=== PATIENT | female | born 1960 | race Caucasian/White ===

== ENCOUNTER → 2021-06-29 06:55 | Outpatient (CLI) | payer BC, SELFPAY ==
--- NOTE | ~2021-06-29 | MM_ITS ---
EXAMINATION: MM screening patricia BI w susan HISTORY: Screening TECHNIQUE: Craniocaudal and mediolateral oblique 3-D tomosynthesis images were obtained and synthetic 2-D images were generated. CAD analysis was submitted and interpreted. COMPARISON: No prior mammogram is available for comparison at this institution. BREAST PARENCHYMAL COMPOSITION: There are scattered areas of fibroglandular density. FINDINGS: There is no evidence of suspicious mass, calcification, or architectural distortion to sugg est malignancy in either breast. There has been no suspicious interval change. IMPRESSION: 1. No mammographic evidence of malignancy. 2. Recommend routine screening mammography in one year. BI-RADS Category 1: Negative Reviewed, dictated and finalized at location A. SH MACHINE TENDER
== END ==
DX: Z12.31 Encounter for screening mammogram for malignant neoplasm of breast (principal)
CPT/HCPCS: 77063; 77067

== ENCOUNTER → 2022-08-02 15:28 | Outpatient (CLI) | payer BC, SELFPAY ==
--- NOTE | ~2022-08-02 | MM_ITS ---
EXAMINATION: MM screening patricia BI w susan HISTORY: Screening TECHNIQUE: Craniocaudal and mediolateral oblique 3-D tomosynthesis images were obtained and synthetic 2-D images were generated. CAD analysis was submitted and interpreted. COMPARISON: 06/29/2021 BREAST PARENCHYMAL COMPOSITION: There are scattered areas of fibroglandular density. FINDINGS: There is no evidence of suspicious mass, calcification, or architectural distortion to sugg est malignancy in either breast. There has been no suspicious interval change. IMPRESSION: 1. No mammographic evidence of malignancy. 2. Recommend routine screening mammography in one year. BI-RADS Category 1: Negative Reviewed, dictated and finalized at location A.
== END ==
PROVIDERS: PCP Physician Assistant; Visit Provider Physician Assistant
DX: Z12.31 Encounter for screening mammogram for malignant neoplasm of breast (principal)
CPT/HCPCS: 77063; 77067

== ENCOUNTER 2023-01-15 16:00 | Emergency (ER) | payer BC, SELFPAY ==
[2023-01-15 16:14] VITALS: BP 90/75; PULSE 95; RESP 16; TEMP 37.7; O2SAT 97
--- NOTE | 2023-01-15 16:17 | ED.URI ---
HPI - URI/Sore Throat General Chief Complaint: Upper Respiratory Infection Stated Complaint: ear/throat pain, cough Time Seen by Provider: 01/15/23 16:17 Source: patient, RN notes reviewed and old records reviewed Mode of arrival: ambulatory Limitations: no limitations History of Present Illness HPI Narrative: 62-year-old female presents to the [facility] with complaints of ear pain throat pain and a cough since Saturday, 2 days ago. Concern for COVID Related Data Home Medications Medication Instructions Recorded Confirmed blood sugar diagnostic (Contour #10 ea 07/10/22 01/15/23 Next Test Strips) blood-glucose meter (Contour Next #1 ea 07/10/22 01/15/23 EZ Meter) lancets (Microlet Lancet) #100 ea 07/10/22 01/15/23 Allergies Allergy/AdvReac Type Severity Reaction Status Date / Time codeine Allergy Intermediate Hives Verified 08/20/22 13:02 Sulfa (Sulfonamide Allergy Intermediate Hives Verified 08/20/22 13:02 Antibiotics) asprin Allergy Intermediate Other Uncoded 08/20/22 13:02 Review of Systems Review of Systems: All systems reviewed & are unremarkable except as noted in HPI and below Constitutional: Constitutional: Reports no additional constitutional complaints Eyes: Eyes: Reports no additional eye complaints ENT: Reports system reviewed and no additional complaints, except as documented Cardiovascular: Cardiovascular: Reports no additional cardiovascular complaints, Denies chest pain and Denies dyspnea Respiratory: Respiratory: Reports as per HPI, Denies chest congestion, Reports cough and Denies dyspnea Gastrointestinal: Gastrointestinal: Reports no additional gastrointestinal complaints, Denies abdominal pain, Denies nausea and Denies vomiting Musculoskeletal: Musculoskeletal: Reports no additional musculoskeletal complaints Integumentary/Breasts: Skin/Breast: Reports system reviewed and no additional complaints, except as docu Neurologic: Reports system reviewed and no additional complaints, except as documented Psychiatric: Psychiatric: Reports no additional psychiatric complaints Allergic/Immunologic: Allergic/Immunologic: Reports no additional allergic/immunologic complaints PMFSH Past Medical History Medical History Diverticulosis Hemophilia B HTN (hypertension) Prediabetes Surgical History Surgical History H/O removal of cyst R ovary H/O wrist surgery ORIF left History of tubal ligation 1995 Hx laparoscopic cholecystectomy Hx of wisdom tooth extraction Family History Family History Mother Hypertension Sibling Breast cancer Social History Social History Smoking packs per day: 1 Smoking cigarettes per day: 20.0 Years smoked: 40 Smoking pack-years: 40.00 Smoking status: Former smoker Tobacco type: cigarettes Second hand tobacco smoke exposure: Yes Alcohol intake: current Drinks per week: 3 Substance use: never Substance use type: does not use Lack of Transportation: No Lack of Food: Never True Current Housing: I Have Housing Concerned About Future Housing: No Difficulty Paying Gas/Electric Bills: No Difficulty Paying for Meds: No Currently Unemployed: No Education: Master's Degree or Higher Difficulty w/ Childcare or Family Care: No Living arrangements: with family Occupation/Education: occupation Gender identity (if verbalized by the patient): Female Sexual Orientation (if Verbalized by the Patient): Straight or Heterosexual Spiritual care concerns: No Agree to blood products: No Comments At the time of my signature, I reviewed and agree with the nursing past medical, surgical, social, and family history. There is no relevant family history pertinent to the patient complaint. Exam Const:
== END 2023-01-15 16:43 | disposition home or self-care (01) ==
PROVIDERS: Emergency Provider Nurse Practitioner; PCP Physician Assistant
DX: U07.1 COVID-19 (principal); Z87.891 Personal history of nicotine dependence; I10 Essential (primary) hypertension; R73.03 Prediabetes
CPT/HCPCS: 87426; 99213; C9803; G0463

== ENCOUNTER 2023-08-14 08:06 | Outpatient (CLI) | payer BC, SELFPAY ==
--- NOTE | ~2023-08-14 | US_ITS ---
EXAMINATION: US arterial ankle brachial ind DATE: 08/14/2023 09:11 INDICATION: Claudication. TECHNIQUE: Segmental pressures and plethysmographic and Doppler waveforms of the brachial and lower e xtremity arteries were obtained. COMPARISON: None. FINDINGS: Right and left brachial artery pressures of 123 mm Hg and 130 mm Hg, respectively, are concordant (no rmal difference <= 30 mmHg). The right ankle-brachial index (IRVIN) is 1.18 (normal >= 0.9-1.0). The right great toe-brachial index (TBI) is 0.32 (normal >= 0.65). Arterial Doppler waveforms are biphasic at the ankle. The left IRVIN is 1.09. The left TBI is 0.39. Arterial Doppler waveforms are biphasic in dorsalis pedis and monophasic in posterior tibial artery. IMPRESSION: 1. Normal ABIs and decreased TBIs, consistent with arterial occlusive disease. Note that ABIs may be overestimated if arteries are calcified. Reviewed, dictated and finalized at location A.
== END 2023-08-14 08:07 | disposition home or self-care (01) ==
PROVIDERS: PCP Family Medicine; Visit Provider Physician Assistant
DX: I73.9 Peripheral vascular disease, unspecified (principal)
CPT/HCPCS: 93922

== ENCOUNTER 2023-08-22 12:15 | Outpatient (CLI) | payer BC, SELFPAY ==
--- NOTE | ~2023-08-22 | MM_ITS ---
EXAMINATION: MM screening patricia BI w susan HISTORY: Screening mammogram TECHNIQUE: Craniocaudal and mediolateral oblique 3-D tomosynthesis images were obtained and synthetic 2-D images were generated. CAD analysis was submitted and interpreted. COMPARISON: 08/02/2022, 06/29/2021 bilateral screening mammogram examinations BREAST PARENCHYMAL COMPOSITION: There are scattered areas of fibroglandular density. FINDINGS: There is no evidence of suspicious mass, calcification, or architectural distortion to sugg est malignancy in either breast. There has been no suspicious interval change. IMPRESSION: 1. No mammographic evidence of malignancy. 2. Recommend routine screening mammography in one year. BI-RADS Category 1: Negative Reviewed, dictated and finalized at location A.
== END 2023-08-22 12:16 ==
LOC: MICIMG 12:17
PROVIDERS: PCP Nurse Practitioner; Visit Provider Physician Assistant
DX: Z12.31 Encounter for screening mammogram for malignant neoplasm of breast (principal)
CPT/HCPCS: 77063; 77067

== ENCOUNTER 2024-08-24 12:20 | Outpatient (CLI) | payer BC, SELFPAY ==
--- NOTE | ~2024-08-24 | MM_ITS ---
EXAMINATION: MM screening patricia BI w susan HISTORY: Screening TECHNIQUE: Craniocaudal and mediolateral oblique 3-D tomosynthesis images were obtained and synthetic 2-D images were generated. CAD analysis was submitted and interpreted. COMPARISON: Comparison to multiple prior studies sequentially, with oldest reviewed study dated 06/29. BREAST PARENCHYMAL COMPOSITION: Not dense: There are scattered areas of fibroglandular density. FINDINGS: There is no evidence of suspicious mass, calcification, or architectural distortion to sugg est malignancy in either breast. There has been no suspicious interval change. IMPRESSION: 1. No mammographic evidence of malignancy. 2. Recommend routine screening mammography in one year. BI-RADS Category 1: Negative Reviewed, dictated and finalized at location B.
== END 2024-08-24 12:21 | disposition home or self-care (01) ==
LOC: MICIMG 12:21
PROVIDERS: PCP Nurse Practitioner; Visit Provider Nurse Practitioner
DX: Z12.31 Encounter for screening mammogram for malignant neoplasm of breast (principal)
CPT/HCPCS: 77063; 77067

== ENCOUNTER 2024-08-25 11:36 | Emergency (ER) | payer BC, SELFPAY ==
[2024-08-25 11:48] VITALS: BP 143/75; PULSE 71; RESP 16; TEMP 36.2; O2SAT 100
--- NOTE | 2024-08-25 11:56 | ED_ITS ---
HPI - Chest Pain General Chief Complaint: Chest Pain Stated Complaint: chest pain left side Time Seen by Provider: 08/25/24 12:14 Source: patient Mode of arrival: ambulatory Limitations: no limitations History of Present Illness HPI narrative: 63-year-old female presents with concern for left-sided chest pain. Reports around 11:00 a.m. this morning she had an episode of chest pain on the left side that felt like pressure, it lasted about 15 minutes and then stopped. She denies any current pain or shortness of breath. She reports she felt short of breath while she was having the pain that she related to the pain itself. She denies any history of similar pain. Denies any cardiac history. Denies nausea, back pain, arm pain MD complaint: chest pain Related Data Home Medications ?Medication ?Instructions ?Recorded ?Confirmed ?Last Taken ?Type blood sugar diagnostic (Contour #10 ea 07/10/22 05/23/24 Unknown History Next Test Strips) blood-glucose meter (Contour Next #1 ea 07/10/22 05/23/24 Unknown History EZ Meter) lancets (Microlet Lancet) #100 ea 07/10/22 05/23/24 Unknown History Allergies Allergy/AdvReac Type Severity Reaction Status Date / Time codeine Allergy Intermediate Hives Verified 08/25/24 11:40 Sulfa (Sulfonamide Allergy Intermediate Hives Verified 08/25/24 11:40 Antibiotics) asprin Allergy Intermediate Other Uncoded 08/25/24 11:40 Review of Systems Review of Systems: CONSTITUTIONAL: Denies malaise, chills, sweats, or fever. EYES: Denies visual changes CARDIOVASCULAR: Reports and single episode of left-sided chest pain earlier today. Denies palpitations or edema. RESPIRATORY: Denies cough. Reports an episode of dyspnea when she was having the chest pain. GASTROINTESTINAL: Denies abdominal pain, nausea, vomiting, SKIN: Denies rash or itching. MUSCULOSKELETAL: Denies back pain NEUROLOGIC: Denies numbness, weakness, or headache. All systems reviewed & are unremarkable except as noted in HPI and below PMFSH Past Medical History Medical History Prediabetes Diverticulosis HTN (hypertension) Hemophilia B Surgical History Surgical History H/O removal of cyst R ovary H/O wrist surgery ORIF left Hx of wisdom tooth extraction Hx laparoscopic cholecystectomy History of tubal ligation 1995 Family History Family History Mother Hypertension Sibling Breast cancer Social History Social History Smoking packs per day: 1 Smoking cigarettes per day: 20.0 Years smoked: 40 Smoking pack-years: 40.00 Smoking status: Former smoker Tobacco type: cigarettes Second hand tobacco smoke exposure: Yes Alcohol intake: current Drinks per week: 3 Substance use: never Substance use type: does not use Do You Feel Safe in your Home?: Yes Lack of Transportation: No Lack of Food: Never True Current Housing: I Have Housing Concerned About Future Housing: No Difficulty Paying Gas/Electric Bills: No Difficulty Paying for Meds: No Currently Unemployed: No Education: Master's Degree or Higher Difficulty w/ Childcare or Family Care: No Living arrangements: with family Occupation/Education: occupation Gender identity (if verbalized by the patient): Female Sexual Orientation (if Verbalized by the Patient): Straight or Heterosexual Spiritual care concerns: No Agree to blood products: No Comments At time of signature, agree with nursing past medical, surgical, social and family history. There is no relevant family history pertinent to the presenting complaint Exam Narrative: GENERAL: Well-appearing, well-nourished, and in no acute distress. HEAD: Normocephalic, atraumatic. EYES: PERRLA, sclera clear, and EOMI. No nystagmus. ENT: Nares clear. Mucous membranes moist. NECK: Supple. CHEST: No respiratory distress. Clear to auscultation. No bony deformities, no asymmetry. Speaks in full sentences. HEART: Regular rate and rhythm. No murmur heard. Normal peripheral pulses. EXTREMITIES: Normal range of motion. No edema. Normal strength and sensation. SKIN: Warm, pink, dry, no visible rash, cap refill less than 3 seconds. NEURO: Alert and oriented x3. PSYCH: Normal mood and affect Course Course Emergency Course: Patient is aware of, understands and agrees to be transferred to ER, patient refused EMS. Patient agrees to proceed to the emergency department now. Portions of this record may have been created with voice recognition software Level of Care: Express Care Visit Vital Signs Vital signs: Vital Signs Temperature 97.1 F L 08/25/24 11:48 Pulse Rate 71 08/25/24 11:48 Respiratory Rate 16 08/25/24 11:48 Blood Pressure 143/75 H 08/25/24 11:48 Pulse Oximetry 100 08/25/24 11:48 Oxygen Delivery Room Air 08/25/24 11:48 Temperature 97.1 F L 08/25/24 11:48 Pulse Rate 71 08/25/24 11:48 Respiratory Rate 16 08/25/24 11:48 Blood Pressure 143/75 H 08/25/24 11:48 Pulse Oximetry 100 08/25/24 11:48 Oxygen Delivery Room Air 08/25/24 11:48 Reviewed. Transfer Transfered to: [facility] Transportation: Other (provate vehicle) Transfer rationale: chest pain, abnormal ECG Accepting physician: Loly Transfer comments: Refused EMS MDM - Chest Pain MDM Narrative Medical decision making narrative: Patient is nontoxic appearing and in no acute distress Critical Care Time Critical Care Time Critical Care Time: No Discharge Plan Discharge Clinical Impression: Abnormal ECG Patient Disposition: Acute Care Hospital Condition: Stable Patient Language: Korean Prescriptions: No Action (DME) blood-glucose meter [Contour Next EZ Meter] Misc See Rx Instructions .ROUTE .MEDSUPPLY Qty: 1 Rx Instructions: As directed (DME) lancets [Microlet Lancet] Misc See Rx Instructions .ROUTE .MEDSUPPLY Qty: 100 Rx Instructions: As directed (DME) Contour Next Test Strips Strip See Rx Instructions .ROUTE .MEDSUPPLY Qty: 10 Rx Instructions: As directed omeprazole 20 mg capsule,delayed release(DR/EC) 20 mg PO DAILY Qty: 30 0RF Jardiance 25 mg tablet See Rx Instructions .ROUTE .COMPLEX Qty: 90 1RF Dose Instruction: TAKE 1 TABLET BY MOUTH DAILY Rx Instructions: TAKE 1 TABLET BY MOUTH DAILY losartan 100 mg tablet 100 mg PO DAILY Qty: 90 0RF Follow-up/Referrals: Lili,Stacey Duque CONTACT LENS TECHNICIAN [Primary Care Provider] - Time of Disposition: 12:28
--- NOTE | 2024-08-25 11:57 | ECG_ITS ---
Test Date: 2024-08-25 12:48:39 Measurements Intervals [place] Rate: 77 P: 45 SC: 155 QRS: -29 QRSD: 108 T: 26 QT: 357 QTc: 406 Interpretive Statements SINUS RHYTHM POSSIBLE LEFT ATRIAL ENLARGEMENT INCOMPLETE RIGHT BUNDLE BRANCH BLOCK POSSIBLE ANTERIOR MYOCARDIAL INFARCTION , PROBABLY OLD BASELINE ARTIFACT- I, III, AVL, V5 ABNORMAL ECG No previous ECG available for comparison Electronically Signed On 08-25-2024 12:57:38 CDT by Javed Latham D.O.
--- NOTE | 2024-08-25 12:14 | ECG_ITS ---
Test Date: 2024-08-25 12:14:25 Measurements Intervals [place] Rate: 74 P: 53 IN: 153 QRS: -22 QRSD: 98 T: 18 QT: 376 QTc: 404 AVG RR: 802 QTcB: 419 QTcF: 404 Interpretive Statements SINUS RHYTHM CONSIDER INFERIOR INFARCT, AGE INDETERMINATE BASELINE ARTIFACT- I, II, III, AVL ABNORMAL ECG Electronically Signed On 08-27-2024 13:48:46 CDT by Javed MCKEE
== END 2024-08-25 12:25 | disposition short-term general hospital (02) ==
PROVIDERS: Emergency Provider Nurse Practitioner; PCP Nurse Practitioner
DX: R94.31 Abnormal electrocardiogram [ECG] [EKG] (principal); Z87.891 Personal history of nicotine dependence; I10 Essential (primary) hypertension; R73.03 Prediabetes
CPT/HCPCS: 93005; 93010; 99213; G0463

== ENCOUNTER 2024-08-25 12:37 | Emergency (ER) | payer BC, SELFPAY ==
[2024-08-25] VITALS (7 sets, daily range): BP systolic 112–149; BP diastolic 69–93; PULSE 73–87; RESP 16–20; TEMP 36.5; O2SAT 95–99
--- NOTE | ~2024-08-25 | CT_ITS ---
CT diagnostic chest wo con Ordering provider: Isha Lackey MD History: 63 years Female with . abnormal CXR . Comparison: None. Technique: CT chest without IV contrast. Radiation reduction technique utilized. The dose-length prod uct was 295.98 mGy-cm. FINDINGS: VISUALIZED THORACIC INLET: Normal. MEDIASTINUM: Aorta/coronary arteries: Mild atheromatous disease. Heart/other: The heart is not enlarged. Lymph nodes: Paratracheal lymph node is seen measuring 1.5 cm. LUNGS: No pulmonary nodules or masses. No infiltrates or effusions. No pneumothorax. Calcified granul tere in the left upper lobe. VISUALIZED UPPER ABDOMEN: Status post cholecystectomy. Otherwise, the visualized upper abdomen is nor mal. MUSCULOSKELETAL: Soft tissues: The superficial soft tissues are normal. Bones: Age appropriate degenerative changes of the spine. IMPRESSION: 1. No acute cardiopulmonary pathology. 2. Calcified granuloma in the left upper lobe measuring 8 mm. Reviewed, dictated and finalized at location A.
--- NOTE | ~2024-08-25 | XR_ITS ---
CHEST RADIOGRAPH, PA AND LATERAL CLINICAL HISTORY: CP . COMPARISON: None TECHNIQUE: PA and lateral views of the chest. FINDINGS The cardiomediastinal silhouette is unremarkable. Projecting over the left upper lobe is a 8 mm asymmetry, for which cross-sectional imaging (noncontra st enhanced CT examination of the chest) is recommended for further evaluation. This may simply represent a calcified granuloma, although the morphology is atypical. The remainder of the lungs are clear. IMPRESSION: Findings projecting over the left upper lobe for which cross-sectional imaging (noncontrast enhanced CT examination of the chest) is recommended for further evaluation. Reviewed, dictated and finalized at location A. IMPRESSION: Findings projecting over the left upper lobe for which cross-sectional imaging (noncontrast enhanced CT examination of the chest) is recommended for further e valuation.
--- NOTE | 2024-08-25 12:48 | ECG_ITS ---
Test Date: 2024-08-25 12:48:39 Measurements Intervals [place] Rate: 77 P: 45 [place]: 155 QRS: -29 QRSD: 108 T: 26 QT: 357 QTc: 406 Interpretive Statements SINUS RHYTHM POSSIBLE LEFT ATRIAL ENLARGEMENT INCOMPLETE RIGHT BUNDLE BRANCH BLOCK POSSIBLE ANTERIOR MYOCARDIAL INFARCTION , PROBABLY OLD BASELINE ARTIFACT- I, III, AVL, V5 ABNORMAL ECG No previous ECG available for comparison Electronically Signed On 08-27-2024 13:37:36 CDT by Javed MCKEE
[2024-08-25 13:12] LABS: Basophils Absolute Auto 0.1 K/mm3 (0.0-0.1); Basophils Percent Auto 0.8 % (0.2-1.2); Eosinophils Absolute Auto 0.3 K/mm3 (0-0.3); Eosinophils Percent Auto 2.6 % (0-4.4); Immature Granulocyte Absolute 0.02 K/mm3 (0.00-0.031); Immature Granulocyte Percent A 0.2 % (0-0.5); Lymphocytes Absolute Auto 2.41 K/mm3 (0.9-3.2); Lymphocytes Percent Auto 24.9 % (18.3-44.2); Mean Corpuscular HGB Conc 30.6 g/dl (32-36); Mean Corpuscular Hemoglobin 25.9 pg (26-34); Mean Corpuscular Volume 84.5 fl (80-100); Monocytes Absolute Auto 0.6 K/mm3 (0.1-0.6); Monocytes Percent Auto 6.2 % (2.6-8.5); Neutrophils Absolute Auto 6.3 K/mm3 (1.3-6.7); Neutrophils Percent Auto 65.3 % (45.5-73.1); Platelet Count Result 294 k/mm3 (150-375); White Blood Count 9.7 K/mm3 (4.5-10.0)
[2024-08-25 13:25] LABS: Alanine Aminotransferase 18 U/L (6-35); Albumin Level 4.6 g/dL (3.5-5.1); Alkaline Phosphatase 116 U/L (38-126); Anion Gap 13 mmol/L (4-12); Aspartate Amino Transferase 23 U/L (14-36); Bilirubin,Total 0.8 mg/dL (0.2-1.3); Blood Urea Nitrogen 12 mg/dL (7-17); Calcium 9.3 mg/dL (8.4-10.2); Carbon Dioxide 24 mmol/L (22-30); Chloride 104 mmol/L (98-107); Estimated Glomerular Filt Rate > 60; Glucose 92 mg/dL (65-110); Lipase 73 U/L (23-300); Potassium 3.9 mmol/L (3.4-5.0); Sodium 141 mmol/L (137-145)
--- OUTSIDE RECORDS SUMMARY | 2024-08-25 13:26 | XMS_ITS | Referral Summary ---
Author Organization [facility] Address [address] [place] [address] Care Team Providers Care Vocational Rehabilitation Specialist Name Role Phone Sherman Miller MD Primary Care Provider [phone] Allergies Active Allergy Reactions Criticality Noted Date Comments Aspirin Other (See comments) High 10/16/2023 Hemophilia Codeine Hives Medium 10/16/2023 Medications omeprazole (PriLOSEC) 20 mg capsule Active blood glucose diagnostic strip Check blood sugars daily. DX R73.03 2 Active factor IX concentrate (BeneFIX) 1,000 (+/-) unit injection Infuse into a venous catheter as needed As needed 3 Active empagliflozin (JARDIANCE) 25 mg tablet 1 tablet (25 mg total) daily Active losartan (COZAAR) 100 mg tablet Take 1 tablet (100 mg total) by mouth daily Active Active Problems No known active problems Social History Tobacco Use Types Packs/Day Years Used Date Smoking Tobacco: Never Assessed Comments Unknown Sex and Gender Information Value Date Recorded Sex Assigned at Not on file Legal Sex Female 12:51 PM CDT Gender Identity Not on file Sexual Orientation Not on file Last Filed Vital Signs Vital Sign Reading Time Taken Comments Blood Pressure 128/88 10/16/2023 9:21 AM CDT Pulse 64 10/16/2023 9:21 AM CDT Temperature 36.4 C (97.5 F) 10/16/2023 9:21 AM CDT Respiratory Rate - - Oxygen Saturation 96% 10/16/2023 9:21 AM CDT Inhaled Oxygen Concentration - - Weight 109.9 kg (242 lb 3.2 oz) 10/16/2023 9:21 AM CDT Height 165.1 cm (5' 5 ) 10/16/2023 9:21 AM CDT Body Mass Index 40.3 10/16/2023 9:21 AM CDT Plan of Treatment Not on file Insurance [employer] O[employer] Care Teams Vocational Rehabilitation Specialist Relationship Specialty Start Date End Date Sherman Miller MD [address] [place] [id number] PCP - General Family Medicine 09/02/23
--- OUTSIDE RECORDS SUMMARY | 2024-08-25 13:26 | XMS_ITS | Clinical Summary ---
Author Organization [facility] Address [address] [place] [address] Care Team Providers Care Technical Support 1 Software Engineer Name Role Phone Sherman Miller MD Primary Care Provider [phone] Allergies Active Allergy Reactions Criticality Noted Date [...] Active Active Problems No known active problems Surgical History Surgery Date Site/Laterality Comments FLUORO GUIDED ASPIRATION WRIST LEFT TUBAL LIGATION Medical History Medical History Date Comments Hypertension Hemophilia (HCC) Social History Tobacco Use Types Packs/Day Years Used Date Smoking Tobacco: Never Assessed Comments Unknown Sex and Gender Information Value Date Recorded Sex Assigned at Not on file Legal Sex Female 12:51 PM CDT Gender Identity Not on file Sexual Orientation Not on file Obstetrics History Last Filed Vital Signs Vital Sign Reading [...] 10/16/2023 9:21 AM CDT Plan of Treatment Health Maintenance Due Date Last Done Comments Colon Cancer Screening-Colonoscopy 1960 Depression Screening 1960 Hepatitis C Screening 1960 Hepatitis B Screening 1978 Regular Well Visit/Exam 18-64 1978 Zoster Vaccine (1 of 2) 2010 Breast Cancer Screening-Mammogram 11/11/2015 11/10/2014, 11/10/2014, 08/20/2013 Cervical Cancer Screening 11/11/2015 11/10/2014 Influenza Vaccine (#1) 2024 2, 02/15/2020, 05/25/2019, Additional history exists DTaP/Tdap/Td Vaccine (4 - Td or Tdap) 06/08/2029 06/08/2019, 11/26/2008, 03/28/1998, Additional history exists Pneumococcal vaccine <65 Aged Out No longer eligible based on patient's age [place] [id number] [employer] OOS [facility] OOS Care Teams Technical Support 1 Software Engineer Relationship Specialty Start Date End Date Sherman Miller MD [address] [place] [address] PCP - General Family Medicine 09/02/23
[2024-08-25 13:37] LABS: Troponin I < 0.012 ng/mL (0.000-0.034)
[2024-08-25 13:41] LABS: Prothrombin Time 13.4 Seconds (11.1-14.7)
[2024-08-25 13:42] LABS: Partial Thromboplastin Time 33.6 Seconds (22.3-36.8)
--- NOTE | 2024-08-25 14:02 | PC.NURSE ---
Pt states has had two episodes of intermittent CP today. The first episode she reports she was at work around 1100 today and had sudden onset of L sided CP that she rated a 7/10 pain lasting approx 15 min. States the pain went away suddenly as well. Reports while sitting in ER, had sudden onset of L sided CP that only lasted for 3 min that she rated a 4/10 and went away suddenly again. Pt denies cardiac hx, in NAD. VSS.
--- OUTSIDE RECORDS SUMMARY | 2024-08-25 15:00 | XMS_ITS | Referral Summary ---
Author Organization [facility] Address [address] [place] [address] Care Team Providers Care Manager Film Name Role Phone Sherman Miller MD Primary Care Provider [phone] Allergies Active Allergy Reactions Criticality Noted Date [...] Plan of Treatment Not on file Insurance [employer] Care Teams Manager Film Relationship Specialty Start Date End Date Sherman Miller MD [address] [place] [id number] PCP - General Family Medicine 09/02/23
--- OUTSIDE RECORDS SUMMARY | 2024-08-25 15:00 | XMS_ITS | Clinical Summary ---
Author Organization [facility] Address [address] [place] [address] Care Team Providers Care Wildlife Refuge Specialist Name Role Phone Sherman Miller MD Primary Care Provider [phone] Allergies Active Allergy Reactions Criticality Noted Date [...] Cervical Cancer Screening 11/11/2015 11/10/2014 Influenza Vaccine (Season Ended) 2025 06/02/2021, 02/15/2020, 05/25/2019, Additional history exists DTaP/Tdap/Td Vaccine (4 - Td or Tdap) 06/08/2029 06/08/2019, 11/26/2008, 03/28/1998, Additional history exists Pneumococcal vaccine <65 Aged Out No longer eligible based on patient's age [place] [id number] [employer] OOS [facility] O[facility] Care Teams Wildlife Refuge Specialist Relationship Specialty Start Date End Date Sherman Miller MD [address] [place] [address] PCP - General Family Medicine 09/02/23
--- NOTE | 2024-08-25 15:49 | ECG_ITS ---
Test Date: 2024-08-25 15:59:48 Measurements Intervals [place] Rate: 78 P: 47 [place]: 149 QRS: -18 QRSD: 96 T: 28 QT: 380 QTc: 433 Interpretive Statements SINUS RHYTHM POSSIBLE LEFT ATRIAL ENLARGEMENT LOW QRS VOLTAGE IN PRECORDIAL LEADS INCOMPLETE RIGHT BUNDLE BRANCH BLOCK BORDERLINE R WAVE PROGRESSION, ANTERIOR LEADS BASELINE ARTIFACT- I, II, III, AVR, AVL, AVF BORDERLINE ECG Compared to ECG 08/25/2024 12:48:39 NO SIGNIFICANT CHANGE Electronically Signed On 08-25-2024 16:08:23 CDT by Javed MCKEE
[2024-08-25 16:25] LABS: Troponin I < 0.012 ng/mL (0.000-0.034)
--- NOTE | 2024-08-25 17:14 | ED.CHESTPAIN ---
HPI - Chest Pain General Chief Complaint: Chest Pain Stated Complaint: Chest pain-abnormal EKG Time Seen by Provider: 08/25/24 13:29 History of Present Illness HPI narrative: Patient was at work earlier when she suddenly started feeling a feeling like someone was pushing on her heart, is quite painful, she had no shortness of breath, nausea vomiting, the pain did not radiate, it has not gotten better so she went to urgent care where they did an EKG and told her that she needed to be seen in the emergency room. By that time her chest pain had completely resolved. Related Data Home Medications ?Medication ?Instructions ?Recorded ?Confirmed ?Last Taken ?Type blood sugar diagnostic (Contour #10 ea 07/10/22 05/23/24 Unknown History Next Test Strips) blood-glucose meter (Contour Next #1 ea 07/10/22 05/23/24 Unknown History EZ Meter) lancets (Microlet Lancet) #100 07/10/22 05/23/24 Unknown History Allergies Allergy/AdvReac Type Severity Reaction Status Date / Time aspirin Allergy Intermediate Hemophelia Verified 08/25/24 12:43 codeine Allergy Intermediate Hives Verified 08/25/24 11:40 Sulfa (Sulfonamide Allergy Intermediate Hives Verified 08/25/24 11:40 Antibiotics) Review of Systems Review of Systems: All systems reviewed & are unremarkable except as noted in HPI and below PMFSH Past Medical History Medical History Prediabetes Diverticulosis HTN (hypertension) Hemophilia B Surgical History Surgical History H/O removal of cyst R ovary H/O wrist surgery ORIF left Hx of wisdom tooth extraction Hx laparoscopic cholecystectomy History of tubal ligation 1995 Family History Family History Mother Hypertension Sibling Breast cancer Social History Social History Smoking packs per day: 1 Smoking cigarettes per day: 20.0 Years smoked: 40 Smoking pack-years: 40.00 Smoking status: Former smoker Tobacco type: cigarettes Second hand tobacco smoke exposure: Yes Alcohol intake: current Drinks per week: 3 Substance use: never Substance use type: does not use Do You Feel Safe in your Home?: Yes Lack of Transportation: No Lack of Food: Never True Current Housing: I Have Housing Concerned About Future Housing: No Difficulty Paying Gas/Electric Bills: No Difficulty Paying for Meds: No Currently Unemployed: No Education: Master's Degree or Higher Difficulty w/ Childcare or Family Care: No Living arrangements: with family Occupation/Education: occupation Gender identity (if verbalized by the patient): Female Sexual Orientation (if Verbalized by the Patient): Straight or Heterosexual Spiritual care concerns: No Agree to blood products: No Exam Narrative: EXAMINATION OF ORGAN SYSTEMS/BODY AREAS: Constitutional: Vital signs per nursing GENERAL:[No acute distress, non-toxic appearing.] HEAD: Normal with no signs of head trauma. EYES: EOMI, conjunctiva normal ENT: Hearing grossly intact LUNGS: Nonlabored breathing. HEART: [Regular rate and rhythm], normal equal radial and DP pulses ABD: [Soft], [nontender to palpation] EXT: Normal range of motion SKIN: [No rashes or lesions.] NEURO: [Alert and oriented x 3. No gross focal sensory or strength deficits.] PSYCH: Normal affect Course Vital Signs Vital signs: Vital Signs Temperature 97.7 F 08/25/24 12:39 Pulse Rate 73 08/25/24 12:39 Respiratory Rate 16 08/25/24 12:39 Blood Pressure 149/90 H 08/25/24 12:39 Pulse Oximetry 99 08/25/24 12:39 Oxygen Delivery Room Air 08/25/24 12:39 Temperature 97.7 F 08/25/24 12:39 Pulse Rate 79 08/25/24 17:04 Respiratory Rate 18 08/25/24 17:04 Blood Pressure 112/69 08/25/24 17:04 Pulse Oximetry 98 08/25/24 17:04 Oxygen Delivery Room Air 08/25/24 13:56 MDM - Chest Pain MDM Narrative Medical decision making narrative: ED COURSE AND MEDICAL DECISION MAKINF presenting with chest pain. EKG done in triage negative for acute ischemic changes. Cardiac workup is initiated. EKG: Performed in triage and interpreted by me. Normal sinus rhythm. Rate 78. Normal axis. IN normal. QRS duration normal. QTc normal. No pathologic Q waves. No ST segment elevation or depression to suggest acute ischemia. HEART score is 3 with no acute ischemic changes on EKG and negative troponin making ACS unlikely. Wells low risk with negative PERC making PE unlikely. Presentation not consistent with dissection or aneurysm without radiation of pain or pulse deficits. CXR negative for mediastinal widening. No abdominal pain or signs of sepsis that would be concerning for esophageal perforation or mediastinitis. No cardiomegaly or JVD to suggest pericardial effusion/tamponade. Radiologist recommended CT chest which is obtained which is calcified granuloma. On repeat evaluation just prior to discharge, the patient is no acute distress. She still has no chest pain at this time. 2- troponins. I had a long discussion with the patient and with shared decision making, she is comfortable with outpatient management. She was given clear return instructions by myself in person as well as on discharge paperwork. Lab Data 08/25/24 12:57 08/25/24 12:57 Labs: Lab Results 08/25/24 08/25/24 Range/Units 12:57 15:59 WBC 9.7 (4.5-10.0) K/mm3 RBC 5.80 H (4.2-5.4) M/mm3 Hgb 15.0 (12.0-15.0) g/dL Hct 49.0 H (37.0-47.0) % MCV 84.5 (80-100) fl MCH 25.9 L (26-34) pg MCHC 30.6 L (32-36) g/dl RDW 15.0 H (11.5-14.5) % Plt Count 294 (150-375) k/mm3 MPV 10.0 (7.4-10.4) fl Immature Gran % (Auto) 0.2 (0-0.5) % Neut % (Auto) 65.3 (45.5-73.1) % Lymph % (Auto) 24.9 (18.3-44.2) % [place] % (Auto) 6.2 (2.6-8.5) % Eos % (Auto) 2.6 (0-4.4) % Baso % (Auto) 0.8 (0.2-1.2) % Lymph # (Auto) 2.41 (0.9-3.2) K/mm3 [place] # (Auto) 0.6 (0.1-0.6) K/mm3 Eos # (Auto) 0.3 (0-0.3) K/mm3 Baso # (Auto) 0.1 (0.0-0.1) K/mm3 Abs Immat Gran (auto) 0.02 (0.00-0.031) K/mm3 Absolute Neuts (auto) 6.3 (1.3-6.7) K/mm3 Absolute Nucleated RBC 0.000 (0.0-0.012) K/mm3 Nucleated RBC % 0.0 (0.0-0.2) % PT 13.4 (11.1-14.7) Seconds INR 1.0 APTT 33.6 (22.3-36.8) Seconds Sodium 141 (137-145) mmol/L Potassium 3.9 (3.4-5.0) mmol/L Chloride 104 (98-107) mmol/L Carbon Dioxide 24 (22-30) mmol/L Anion Gap 13 H (4-12) mmol/L BUN 12 (7-17) mg/dL Creatinine 0.60 L (0.7-1.0) mg/dL Estim Creat Clear Calc Not Reportable Estimated GFR > 60 (59 - ) Glucose 92 (65-110) mg/dL Calcium 9.3 (8.4-10.2) mg/dL Total Bilirubin 0.8 (0.2-1.3) mg/dL AST 23 (14-36) U/L ALT 18 (6-35) U/L Alkaline Phosphatase 116 (38-126) U/L Troponin I < 0.012 < 0.012 (0.000-0.034) ng/mL Total Protein 9.0 H (6.3-8.2) g/dL Albumin 4.6 (3.5-5.1) g/dL Lipase 73 (23-300) U/L Discharge Plan Discharge Clinical Impression: Chest pain Patient Disposition: Home Condition: Stable Instructions: Chest Pain (ED) Additional Instructions: Please follow up with the teacher of the sight impaired; you can always return for any further issues especially if symptoms come back or worse. Patient Language: Gibraltarian Prescriptions: No Action (DME) blood-glucose meter [Contour Next EZ Meter] Misc See Rx Instructions .ROUTE .MEDSULY Qty: 1 Rx Instructions: As directed (DME) lancets [Microlet Lancet] Misc See Rx Instructions .ROUTE .MEDSUPPLY Qty: 100 Rx Instructions: As directed (DME) Contour Next Test Strips Strip See Rx Instructions .ROUTE .MEDSUPPLY Qty: 10 Rx Instructions: As directed omeprazole 20 mg capsule,delayed release(DR/EC) 20 mg PO DAILY Qty: 30 0RF Jardiance 25 mg tablet See Rx Instructions .ROUTE .COMPLEX Qty: 90 1RF Dose Instruction: TAKE 1 TABLET BY MOUTH DAILY Rx Instructions: TAKE 1 TABLET BY MOUTH DAILY losartan 100 mg tablet 100 mg PO DAILY Qty: 90 0RF Follow-up/Referrals: Austin Maria MD [Physician] - 2 Days LaMkeerthi,Stacey Duque NP [Primary Care Provider] -
== END 2024-08-25 17:38 | disposition home or self-care (01) ==
PROVIDERS: Emergency Medicine; Emergency Provider Emergency Medicine; PCP Nurse Practitioner
DX: R07.9 Chest pain, unspecified (principal); I10 Essential (primary) hypertension; D67 Hereditary factor IX deficiency; K57.90 Diverticulosis of intestine, part unspecified, without perforation or abscess without bleeding
CPT/HCPCS: 36415; 71046; 71250; 80053; 83690; 84484; 85025; 85610; 85730; 93005; 99284

== ENCOUNTER 2024-09-23 07:52 | Outpatient (CLI) | payer BC, SELFPAY ==
--- NOTE | ~2024-09-23 | DEXA_ITS ---
Bone Density Report Name: POP FUNEZ Age: 63 Sex: Female Ethnicity: White Date of : 1960 Indication: postmenopausal; screening for osteoporosis; height loss; prior fracture; Referring Provider: LORENZO, JEEVAN Duque Study: Bone densitometry was performed. Exam Date: September 23, 2024 Accession number: [id number] Bone Density: Region BMD T-score Z-score Classification AP Spine(L1-L4) 1.017 -0.3 1.4 Normal Femoral Neck (Left) 0.780 -0.6 0.8 Normal Total Hip (Left) 0.938 0.0 1.1 Normal Femoral Neck (Right) 0.789 -0.5 0.9 Normal Total Hip (Right) 0.881 -0.5 0.7 Normal Total Hip Mean 0.909 -0.3 0.9 Normal World Health Organization criteria for BMD impression classify patients as: Normal (T-score at or above -1.0), Osteopenia (T-score between -1.0 and -2.5), or Osteoporosis (T-score at or below -2.5). 10-year Fracture Risk: FRAX not reported because: All T-scores for Spine Total, Hip Total, Femoral Neck at or above -1.0 Clinical Information Provided by Patient: Has had a low trauma fracture Patient maximum height was 66.0 Menopause Age: 52 No regular weight bearing exercise Drinks caffeinated beverages Onset of menses at age 12 Number of children 3 Impression: The patient has normal bone mass. The patient has risk factors, including: previous fracture. Discussion: BONE DENSITY IS ABOVE THE MINIMUM DESIRABLE LEVEL AT ALL SKELETAL SITES TESTED. This patient’s bone mineral density is above the minimum desirable level (T-score -1.0 or better) at all sites measured. The patient should follow a healthful lifestyle (good nutrition with adequate calcium and vitamin D, and appropriate weight-bearing exercise). Follow-Up: Consider repeating this study in 5 years or sooner if there is some new clinical indication. Reported by: FREDERICK on 09/30/2024 12:47:00 PM. Reviewed, dictated and finalized at location A.
== END 2024-09-23 07:53 | disposition home or self-care (01) ==
PROVIDERS: PCP Nurse Practitioner; Visit Provider Nurse Practitioner
DX: Z13.820 Encounter for screening for osteoporosis (principal)
CPT/HCPCS: 77080

== ENCOUNTER 2024-12-07 09:52 | Emergency (ER) | payer BC, SELFPAY ==
[2024-12-07 10:00] VITALS: BP 141/86; PULSE 96; RESP 18; TEMP 36.6; O2SAT 98
--- NOTE | 2024-12-07 10:14 | ED_ITS ---
HPI - Ear Problem General Chief complaint: Ear Stated complaint: Ears Irritation Time Seen by Provider: 12/07/24 10:00 Source: patient and RN notes reviewed Mode of arrival: ambulatory Limitations: no limitations History of Present Illness HPI Narrative: 64-year-old female presents Express Care complaining of left ear pain for approximately to 3 days. Patient denies any recent swimming, cough, congestion, upper respiratory symptoms, fevers, body aches, chills, nausea, vomiting, dizziness, lightheadedness, or any other symptoms. Patient said today she woke up with pain in her left jaw warts pain with movement of her left jaw and eating. Related Data Home Medications ?Medication ?Instructions ?Recorded ?Confirmed ?Last Taken ?Type blood sugar diagnostic (Contour #10 ea 07/10/22 05/23/24 Unknown History Next Test Strips) blood-glucose meter (Contour Next #1 ea 07/10/22 05/23/24 Unknown History EZ Meter) lancets (Microlet Lancet) #100 07/10/22 05/23/24 Unknown History Allergies Allergy/AdvReac Type Severity Reaction Status Date / Time aspirin Allergy Intermediate Hemophelia Verified 12/07/24 09:54 codeine Allergy Intermediate Hives Verified 12/07/24 09:54 Sulfa (Sulfonamide Allergy Intermediate Hives Verified 12/07/24 09:54 Antibiotics) Review of Systems Review of Systems: CONSTITUTIONAL: Denies fever, chills, or sweats. EYES: Denies visual changes, redness, or discharge. ENT: Denies rhinorrhea, congestion, sore throat,. Positive for otalgia and left jaw pain. CARDIOVASCULAR: Denies chest pain, dizziness, lightheadedness, left arm pain, palpitations, or edema. RESPIRATORY: Denies cough or dyspnea. GASTROINTESTINAL: Denies abdominal pain, nausea, vomiting, or diarrhea. GENITOURINARY: Denies dysuria or hematuria. SKIN: Denies rash or itching. MUSCULOSKELETAL: Denies back pain, joint pain, or myalgia. NEUROLOGIC: Denies headache, numbness, or weakness. PSYCHIATRIC: Denies anxiety or depression. All other systems reviewed are negative, except as documented in HPI. [facility]LY [facility] Past Medical History Medical History Prediabetes Diverticulosis HTN (hypertension) Hemophilia B Surgical History Surgical History H/O removal of cyst R ovary H/O wrist surgery ORIF left Hx of wisdom tooth extraction Hx laparoscopic cholecystectomy History of tubal ligation 1995 Family History Family History Mother Hypertension Sibling Breast cancer Social History Social History Smoking packs per day: 1 Smoking cigarettes per day: 20.0 Years smoked: 40 Smoking pack-years: 40.00 Smoking status: Former smoker Tobacco type: cigarettes Second hand tobacco smoke exposure: Yes Alcohol intake: current Drinks per week: 3 Substance use: never Substance use type: does not use Do You Feel Safe in your Home?: Yes Lack of Transportation: No Lack of Food: Never True Current Housing: I Have Housing Concerned About Future Housing: No Difficulty Paying Gas/Electric Bills: No Difficulty Paying for Meds: No Currently Unemployed: No Education: Master's Degree or Higher Difficulty w/ Childcare or Family Care: No Living arrangements: with family Occupation/Education: occupation Gender identity (if verbalized by the patient): Female Sexual Orientation (if Verbalized by the Patient): Straight or Heterosexual Spiritual care concerns: No Agree to blood products: No Comments At the time of my signature, I reviewed and agree with the nursing past medical, surgical, social, and family history. There is no relevant family history per tinent to the patient complaint. Exam Narrative: GENERAL: This is a well-nourished, well-developed adult, in no apparent distress. They are non ill-appearing, nontoxic appearing. HEAD: normocephalic, atraumatic. EYES: Sclera clear/white. Conjunctiva normal. Vision is grossly intact. Extraocular movements intact. Pupils PERRLA. No nystagmus. EARS: External ears normal, left auditory canal mildly erythematous. No drainage. Right auditory canal clear without redness or swelling, or discharge., TMs normal without perforation. Hearing grossly intact. No mastoid tenderness. NOSE: External nose normal with no obvious nasal discharge, nasal turbinates without redness, no rhinorrhea. THROAT: Mucous membranes moist, posterior pharynx clear, without erythema or swelling. Uvula midline. No trismus. Tenderness to palpation to left TMJ joint. No Obvious swelling or redness to TMJ joint. NECK: Neck supple, non-tender without lymphadenopathy, masses or thyromegaly. CARDIOVASCULAR: Regular rate and rhythm without murmurs, gallops, or rubs. RESPIRATORY: Clear to auscultation. Breath sounds equal bilaterally. No wheezes, rales, or rhonchi. SKIN: warm, Dry, intact with no suspicious lesions or rash, good texture and turgor. NEURO: awake, alert, and oriented to person, place and time. There were no obvious focal neurologic abnormalities. EXTREMITIES: No joint tenderness, effusion, or edema noted. Course Course Emergency Course: Portions of this record may have been created with voice recognition software Level of Care: Express Care Visit Vital Signs Vital signs: Vital Signs Temperature 97.9 F 12/07/24 10:00 Pulse Rate 96 12/07/24 10:00 Respiratory Rate 18 12/07/24 10:00 Blood Pressure 141/86 H 12/07/24 10:00 Pulse Oximetry 98 12/07/24 10:00 Oxygen Delivery Room Air 12/07/24 10:00 Temperature 97.9 F 12/07/24 10:00 Pulse Rate 96 12/07/24 10:00 Respiratory Rate 18 12/07/24 10:00 Blood Pressure 141/86 H 12/07/24 10:00 Pulse Oximetry 98 12/07/24 10:00 Oxygen Delivery Room Air 12/07/24 10:00 Reviewed Medical Decision Making MDM Narrative Medical decision making narrative: Left auditory canal mildly erythematous. Likely patient has otitis externa. Will treat with ofloxacin ear drops. Patient jaw symptoms may be referred pain however she may also have TMJ, advised patient follow-up with PCP or dentist for further evaluation of her her jaw if they do not improve. Discussed physical exam findings. Advised supportive measures and signs/symptoms to go to the ER. Pt is appropriate for outpt treatment and f/u. Differential Diagnosis Differential Diagnosis: Otitis media, otitis externa, TMJ, upper respiratory infection Vital Signs Vital Signs: Vital Signs Temperature 97.9 F 12/07/24 10:00 Pulse Rate 96 12/07/24 10:00 Respiratory Rate 18 12/07/24 10:00 Blood Pressure 141/86 H 12/07/24 10:00 Pulse Oximetry 98 12/07/24 10:00 Oxygen Delivery Room Air 12/07/24 10:00 Temperature 97.9 F 12/07/24 10:00 Pulse Rate 96 12/07/24 10:00 Respiratory Rate 18 12/07/24 10:00 Blood Pressure 141/86 H 12/07/24 10:00 Pulse Oximetry 98 12/07/24 10:00 Oxygen Delivery Room Air 12/07/24 10:00 Critical Care Time Critical Care Time Critical Care Time: No Discharge Plan Discharge Clinical Impression: Otitis externa Patient Disposition: Home Condition: Stable Instructions: Antibiotic Form, How to Use Ear Drops (ED), Ear Infection (GEN) Additional Instructions: Take antibiotic drops as directed. Tylenol and ibuprofen every 8 hours as needed to reduce fever, pain Avoid water or anything into the ear for one week Follow up with your personal physician for further evaluation and treatment within 3-5days. If your symptoms persist, change or worsen significantly, go to the emergency department for further evaluation. Patient Language: Jordanian Prescriptions: New ofloxacin 0.3 % drops 10 drp LEFT EAR DAILY 7 Days Qty: 10 0RF No Action (DME) blood-glucose meter [Contour Next EZ Meter] Misc See Rx Instructions .ROUTE .MEDSUPPLY Qty: 1 Rx Instructions: As directed (DME) lancets [Microlet Lancet] Misc See Rx Instructions .ROUTE .MEDSUPPLY Qty: 100 Rx Instructions: As directed (DME) Contour Next Test Strips Strip See Rx Instructions .ROUTE .MEDSUPPLY Qty: 10 Rx Instructions: As directed omeprazole 20 mg capsule,delayed release(DR/EC) 20 mg PO DAILY Qty: 30 0RF Jardiance 25 mg tablet See Rx Instructions .ROUTE .COMPLEX Qty: 90 1RF Dose Instruction: TAKE 1 TABLET BY MOUTH DAILY Rx Instructions: TAKE 1 TABLET BY MOUTH DAILY losartan 100 mg tablet 100 mg PO DAILY Qty: 90 0RF Follow-up/Referrals: Lili,Stacey Duque NP [Primary Care Provider] - Time of Disposition: 10:14
== END 2024-12-07 10:20 | disposition home or self-care (01) ==
PROVIDERS: PCP Nurse Practitioner
DX: H60.92 Unspecified otitis externa, left ear (principal); I10 Essential (primary) hypertension; Z87.891 Personal history of nicotine dependence
CPT/HCPCS: 99213; G0463